=== PATIENT | female | born 1985 | race African-American/Black ===

== ENCOUNTER 2022-08-01 16:05 | Emergency (ER) | payer MEDICAID, OTHER ==
[~2022-08-01] VITALS: Ht 162.6 cm; Wt 100.0 kg
[~2022-08-01 16:05] MED LIST: PREN-88 PO
[2022-08-01] MEDS ORDERED: LIDOCAINE HCL 1% 20ML VIAL (Pyxis) INJ INFIL ONE ×2 (19:15)
[2022-08-01] MEDS ORDERED: PENICILLIN G BENZATHINE 2,400,000 UNITS/4ML SYR IM ONE (19:15)
[2022-08-01] MEDS ORDERED: CEFTRIAXONE SODIUM 500 MG/VIAL IM ONE (19:15)
[2022-08-01] MEDS ORDERED: METR-167 MT (19:35)
[2022-08-01] MEDS ORDERED: DOXY100C5 MT (19:35)
[2022-08-01 20:17] VITALS: BP 122/82
[2022-08-05 08:07] LABS: NEISSERIA GONORRHOEAE NAA Negative (Negative)
== END 2022-08-01 20:10 | disposition home or self-care (01) ==
LOC: ER 16:05
DX: N64.4 Mastodynia (principal); N89.8 Other specified noninflammatory disorders of vagina; Z98.890 Other specified postprocedural states
CPT/HCPCS: 81025; 86592; 87210; 87491; 87591; 96372; 99284; J0561; J0696

== ENCOUNTER 2022-08-07 08:08 | Emergency (ER) | payer OTHER ==
[~2022-08-07] VITALS: Ht 162.6 cm; Wt 100.0 kg
[~2022-08-07 08:08] MED LIST changes: +DOXY100C5 MT; +METR-167 MT
[2022-08-07] MEDS ORDERED: THROAT LOZENGES-BENZOCAINE/MENTH/CETYLPYRD CL LOZENGES MM PRN (09:15)
[2022-08-07] MEDS ORDERED: ACETAMINOPHEN 325MG TABLET PO ONE (09:15)
[2022-08-07] MEDS ORDERED: ACETAMINOPHEN 325MG TABLET PO NR (11:15)
[2022-08-07 14:37] VITALS: BP 120/75
[2022-08-07] MEDS ORDERED: BENZ1LOZ73 MT (14:37)
== END 2022-08-07 15:39 | disposition home or self-care (01) ==
LOC: ER 08:35
DX: B34.9 Viral infection, unspecified (principal); Z20.822 Contact with and (suspected) exposure to COVID-19; Z98.890 Other specified postprocedural states
CPT/HCPCS: 71045; 87070; 87426; 87430; 93005; 99285; C9803